=== PATIENT | male | born 2000 ===

== ENCOUNTER → 2024-12-25 10:01 | Outpatient (CLI) | payer OTHER, SELFPAY ==
[2024-12-25 10:47] LABS: Influenza A - CEPHEID Flu A NEGATIVE (NEGATIVE); Influenza B - CEPHEID Flu B NEGATIVE (NEGATIVE)
[2024-12-25 11:30] LABS: COVID-19 CEPHEID 4-PLEX PCR POSITIVE (Negative)
== END ==
PROVIDERS: Visit Provider Nurse Practitioner Family
DX: R05.1 Acute cough (principal)
CPT/HCPCS: 87637